=== PATIENT | male | born 1990 | race Caucasian/White ===

== ENCOUNTER 2017-05-27 14:01 | Emergency (ER) | payer OTHER ==
--- NOTE | 2017-05-27 14:19 | ED Physician Documentation ---
PD HPI HEENT - Stated complaint Stated Complaint: SORE THROAT - Chief complaint Chief Complaint: Heent - History obtained from History obtained from: Patient - History of Present Illness Timing - onset: Other (1 day of sore throat with chills, no other URI symptoms. His sister recently tested positive for strep.) Review of Systems Constitutional: reports: Chills, Myalgias. denies: Fever, Fatigue Ears: denies: Ear pain Nose: denies: Rhinorrhea / runny nose, Congestion Throat: reports: Sore throat PD PAST MEDICAL HISTORY - Present Medications Home Medications: Ambulatory Orders Medication Instructions Recorded Confirmed No Known Home Medications [No 05/27/17 05/27/17 Known Home Medications] - Allergies Allergies/Adverse Reactions: Allergies Allergy/AdvReac Type Severity Reaction Status Date / Time No Known Drug Allergies Allergy Verified 05/27/17 14:11 PD ED PE NORMAL - Vitals Vital signs reviewed: Yes - General General: Alert and oriented X 3, No acute distress - HEENT HEENT: Other (Tonsils are red and swollen but there is no exudate, mild anterior cervical Adenopathy) - Neck Neck: Supple, no meningeal sign, No bony TTP - Derm Derm: No rash - Neuro Neuro: Alert and oriented X 3 - Psych Psych: Normal mood, Normal affect Results - Vitals Vitals: Vital Signs - 24 hr 05/27/17 14:08 Temperature 37.2 C Heart Rate 110 H Respiratory 20 Rate Blood Pressure 140/85 H O2 Saturation 100 - Labs Labs: Laboratory Tests 05/27/17 14:19 Group A Strep Rapid Negative Departure - Departure Disposition: 01 Home, Self Care Clinical Impression: Viral pharyngitis Condition: Good Record reviewed to determine appropriate education?: Yes Instructions: ED Pharyngitis Viral Report Pending Comments: Your strep test today was negative, we will still culture it and sometimes we will get a positive result later, if that is the case we will call you in approximately 48 hours. Your blood pressure was elevated today on check into the emergency department. This does not mean that you have hypertension, it is a common phenomenon to come to the emergency department and have elevated blood pressure. I recommend that you see your primary care physician within the week to have it rechecked when you are feeling better.
[2017-05-27 14:31] LABS: RAPID STREP SCREEN REAGENT QC YELLOW (YELLOW)
[2017-05-27 14:57] VITALS: BP 110/68
== END 2017-05-27 14:56 | disposition home or self-care (01) ==
LOC: ED 14:01
DX: J02.8 Acute pharyngitis due to other specified organisms (principal); B97.89 Other viral agents as the cause of diseases classified elsewhere; R03.0 Elevated blood-pressure reading, without diagnosis of hypertension
CPT/HCPCS: 87070; 87430; 99282; 99283